=== PATIENT | female | born 1965 | race Asian ===

== ENCOUNTER 2019-11-10 21:24 | Emergency (ER) | payer BC, SELFPAY ==
[~2019-11-10] VITALS: Ht 160 cm; Wt 50.8 kg
[2019-11-10 21:35] VITALS: BP_SYST 124
[2019-11-10] MEDS ORDERED: ACETAMINOPHEN WITH CODEINE 12.5 ML UDC PO ONE (21:45)
[2019-11-10] MEDS ORDERED: LORazepam 1 MG TABLET PO ONE (23:30)
[2019-11-11 00:03] VITALS: BP_SYST 132
== END 2019-11-11 00:03 | disposition home or self-care (01) ==
LOC: SED 21:24
DX: U07.1 COVID-19 (principal); J20.9 Acute bronchitis, unspecified
CPT/HCPCS: 71045; 99283